=== PATIENT | female | born 1965 | race Caucasian/White ===

== ENCOUNTER → 2023-09-29 08:51 | Outpatient (BNVA) | payer SELFPAY | PROVIDERS: PCP Nurse Practitioner Family; Visit Provider Physician Assistant Surgical ==

== ENCOUNTER 2023-10-27 08:18 | Outpatient (AMB) | payer OTHER, SELFPAY ==
--- NOTE | 2023-10-27 08:23 | MHC.OFFVISWM ---
Intake VS Expanded 10/27/23 08:30 BP 133/61 Blood Pressure Location Rt brachial Blood Pressure Position Sitting Pulse 91 Pulse Source Pulse Oximeter Temp 97.3 F Temperature Source Temporal Artery Scan Pulse Oximetry 98 Oxygen Delivery Method Room Air Height 5 ft 3 in Weight 179 lb 12.8 oz BMI 31.8 Body Fat % 40.4 Body Fat Mass 72.6 Fat Free Mass 107.2 Visceral Fat Rating 11.0 Body Water % 42.2 Body Water Mass 75.8 Muscle Mass/Score 101.6 Basal Metabolic Rate/Score 1,473 Intake Visit Reasons: OV MWL 31.6 Allergies No Known Allergies Allergy (Verified 10/27/23 08:24) HPI HPI Comments History of Present Illness Details This is a 58 year old woman who is here to start MWL program. Her goal is to weigh about 140 - 145 lbs. She reports first being concerned about her weight about 10 years ago. She has tried multiple methods of weight loss including WW, [employer] and other diets. without permanent results. She lives with . 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 7 a - 3pm, some days until 9pm. She wakes at: 5:40 am bed at10;30 - 11 pm. Breakfast: 6:30am- tea with honey, oatmeal (steel cut or rolled) with brown sugar Lunch: 12:30 - 1:30- leftovers from home. water or seltzer Dinner: 6:30 am - fish or chicken, brussel sprouts and/or salad with mashed potatoes or pasta. [place] large portions for all meals After dinner: no snacks after dinner Other snacks: no snacks during the day Liquids: No soda, no fruti juice or sweetened drinks. Alcohol intake: none, tobacco: none, marijuana: none Exercise: VR Mirror at home. Was doing 3 d/week x 30 - 45 minutes. Last mammogram: Fall 2022 Last pap smear:up to date control method: post menooausal RILEY: 1 ESS: 7 GERD: 0 QOL: 62 PFSH Surgical History Hx of right knee surgery Hx of appendectomy Hx of thyroidectomy Family History Father Cancer Social History (Updated 09/29/23 @ 13:20 by Blanca Prasad [facility]) Alcohol intake: never Patient Tobacco Use Status: Never used Tobacco Current occupation: Nurse Assessment & Plan Assessment & Plan (1) Obesity: Code(s): E66.9 - Obesity, unspecified Plan: This is a 58 yo woman with obesity who will start MWL program. Goal to lose 40 lbs and then maintain it. Wants an agressive meal plan, Watch all MWL classes before her next appt with Laura. 1. Adequate sleep of 7-8 hours per night discussed - needs more sleep 2. Healthy meal plan - Add daily fiber supplement All meals/MR's need to take 20 minutes to complete tea with honey 7am - protein shake with water or UAM 12pm - protein shake with water or UAM 3:30 pm- yogurt or cc with serving of fruit 6:30 pm- dinner of 6 oz lean protein, 8 oz vegetable, 1/2 c healthy carbs. Has food scale at home. Exercise - needs to start a routine 5d/ week - low intensity and then increase over the month. Start with LS 1 mile 5d/wk - then add 2 miles a few days per week., etc... Pt will purchase body composition analyzer (recommended list given to patient) and weight herself weekly. Next appt with Laura in 4 weeks, then me 4 weeks later. Text me with any questions and weekly weights. Patient is morbidly obese and is not considered stable at this time.?I spent a total of 60 minutes reviewing/updating records, examining the patient and counseling the patient on weight management as detailed above. (2) Hypothyroid: Code(s): E03.9 - Hypothyroidism, unspecified Plan: continue present meds Coding Level of Care Code New Pt Level 5 (52216) Diagnoses Obesity E66.9 Hypothyroid E03.9
[2023-10-27 08:30] VITALS: BP 133/61; PULSE 91; TEMP 36.3; O2SAT 98; BMI 31.8
== END 2023-10-27 09:22 | disposition home or self-care (01) ==
PROVIDERS: PCP Nurse Practitioner Family; Visit Provider Physician Assistant
DX: E66.9 Obesity, unspecified (principal); E03.9 Hypothyroidism, unspecified; Z68.31 Body mass index [BMI] 31.0-31.9, adult
CPT/HCPCS: 99205

== ENCOUNTER → 2023-10-27 08:18 | Outpatient (BNVA) | payer OTHER, SELFPAY | PROVIDERS: PCP Nurse Practitioner Family; Visit Provider Physician Assistant ==